=== PATIENT | male | born 1940 | race Caucasian/White ===

== ENCOUNTER → 2017-03-05 | Outpatient (CLI) | payer OTHER, MEDICARE ==
[~2017-03-05] MED LIST: CIPRO750 MG PO; COUMADIN,JANTO2.5 MG PO; COUMADIN,JANTOVE5 MG PO; DIGOXIN250 MCG PO; DYAZIDE, MA1 CAPSULE PO; LANOXIN,DIGIT0.25 MG PO; LISINOPRIL10 MG PO; Lopressor PO; METOPROLOL SUC100 MG PO; METOPROLOL TART50 MG PO; NAFCIL2 GM IV; NORCO 5/3251 TABLET PO; PERSERVISION; PRAVASTATIN SOD40 MG PO; PRINIVIL20 MG PO; PROTONIX40 MG PO; WYGESIC,DARV1 TABLET PO; XARELTO20 MG PO; Zestril,Prinivil PO
== END | disposition home or self-care (01) ==
LOC: NUC 09:33
DX: R10.9 Unspecified abdominal pain (principal)
CPT/HCPCS: 78226; A9537

== ENCOUNTER 2017-05-05 05:20 | Day surgery (SDC) | payer OTHER, MEDICARE ==
[~2017-05-05] VITALS: Ht 175.3 cm; Wt 87.2 kg
[~2017-05-05 05:20] MED LIST changes: +ALDACTONE25 MG PO; +FOLIC ACID1 MG PO; +METHOTREXATE2.5 MG PO; +PRESERVISION T1 EACH PO; +PRILOSEC20 MG PO; +VITAMIN D-32000 UNI2 PO
[2017-05-05 06:00] VITALS: BP 188/90
[2017-05-05] MEDS ORDERED: NORCO 5/3251 TABLET PO (08:24)
[2017-05-05 09:37] VITALS: BP 194/89
[2017-05-05 10:30] VITALS: BP 91/65
== END 2017-05-05 10:50 | disposition home or self-care (01) ==
LOC: SDC 05:20
PROC: 0FT44ZZ Resection of Gallbladder, Percutaneous Endoscopic Approach (ICD-10-PCS; principal; 2017-05-05)
DX: K80.10 Calculus of gallbladder with chronic cholecystitis without obstruction (principal); I48.91 Unspecified atrial fibrillation; I10 Essential (primary) hypertension; E78.5 Hyperlipidemia, unspecified; E11.9 Type 2 diabetes mellitus without complications; Z79.01 Long term (current) use of anticoagulants; Z80.0 Family history of malignant neoplasm of digestive organs; Z87.891 Personal history of nicotine dependence
CPT/HCPCS: 80162; 88304; J0131; J0330; J0360; J0690; J1100; J1885; J2405; J2710; J3010

== ENCOUNTER 2017-06-17 07:57 | Day surgery (SDC) | payer OTHER, MEDICARE ==
[~2017-06-17] VITALS: Ht 175.3 cm; Wt 84.8 kg
[~2017-06-17 07:57] MED LIST changes: +ZESTRIL20 MG PO
[2017-06-17 08:31] VITALS: BP 172/72
[2017-06-17 09:45] LABS: METH RESISTANT S AUREUS PCR NEGATIVE (NEGATIVE); PROBE CHECK PASS; SPECIMEN PROCESSING CONTROL PASS
[2017-06-17] MEDS ORDERED: NORCO 5/3251 TABLET PO (11:03)
[2017-06-17 11:10] LABS: POINT-OF-CARE METER ID UU13113675; POINT-OF-CARE USER ID ADMKMM76
[2017-06-17 11:35] VITALS: BP 155/78
[2017-06-17 12:15] VITALS: BP 142/54
== END 2017-06-17 12:22 | disposition home or self-care (01) ==
LOC: SDC 07:57
PROVIDERS: Surgery
PROC: 0J980ZZ Drainage of Abdomen Subcutaneous Tissue and Fascia, Open Approach (ICD-10-PCS; principal; 2017-06-17)
DX: T81.4XXA Infection following a procedure, initial encounter (principal); L02.216 Cutaneous abscess of umbilicus; Y83.8 Other surgical procedures as the cause of abnormal reaction of the patient, or of later complication, without mention of misadventure at the time of the procedure; Z18.89 Other specified retained foreign body fragments; I10 Essential (primary) hypertension; I48.91 Unspecified atrial fibrillation; E11.9 Type 2 diabetes mellitus without complications; E78.5 Hyperlipidemia, unspecified; M06.9 Rheumatoid arthritis, unspecified; Z79.01 Long term (current) use of anticoagulants; Z87.891 Personal history of nicotine dependence; Z82.49 Family history of ischemic heart disease and other diseases of the circulatory system; Z80.0 Family history of malignant neoplasm of digestive organs
CPT/HCPCS: 82948; 87641; J0690; J2405; J3010; S0020